=== PATIENT | male | born 1970 | race Caucasian/White ===

== ENCOUNTER 2022-06-18 10:23 | Emergency (ER) | payer BC ==
[2022-06-18] MEDS ORDERED: Sodium Chloride 0.9% 10 ML Syringe FLUSH PRN (10:50)
[2022-06-18] MEDS ORDERED: Ondansetron 4 MG/2 ML SDV IVPUSH ONE (10:52)
[2022-06-18] MEDS ORDERED: Meclizine 25 MG Tab PO ONE ×2 (10:53→12:20)
[2022-06-18 11:30] LABS: CHLORIDE,CL 104 mmol/L (98-107); SODIUM,NA 138 mmol/L (136-145)
[2022-06-18 11:32] LABS: ANION GAP 14.1 mmol/L (5-15); ESTIMATED GFR 103 mL/min (>=60)
== END 2022-06-18 12:40 | disposition home or self-care (01) ==
LOC: VM.ED 10:23
DX: R42 Dizziness and giddiness (principal); I10 Essential (primary) hypertension; E11.9 Type 2 diabetes mellitus without complications; Z79.84 Long term (current) use of oral hypoglycemic drugs; Z79.899 Other long term (current) drug therapy
CPT/HCPCS: 70450; 80053; 83735; 84484; 85025; 86140; 93005; 96374; 99284; 99284-25; A9270-GY; J2405